=== PATIENT | male | born 1955 | race Hispanic/Latino ===

== ENCOUNTER → 2017-12-23 | Day surgery (SDC) | payer OTHER ==
[2017-12-20 10:15] LABS: BASOPHILS % 0.4 % (0.0-1.0); EOSINOPHILS # (AUTO) 0.1 (0.0-0.4); EOSINOPHILS % 0.7 % (0.0-6.0); HEMATOCRIT 42.6 % (38.2-49.6); HEMOGLOBIN 14.8 g/dL (14.0-18.0); LYMPHOCYTES # (AUTO) 1.8 (1.0-3.2); LYMPHOCYTES % 26.3 % (18.0-39.1); MEAN CORPUSCULAR HEMOGLOBIN 31.8 pg (28-32); MEAN CORPUSCULAR HGB CONC 34.7 g/dL (31-35); MEAN CORPUSCULAR VOLUME 91.6 fL (81-99); MONOCYTES # (AUTO) 0.4 (0.2-0.8); MONOCYTES % 6.4 % (4.4-11.3); NEUTROPHILS # (AUTO) 4.4 (2.1-6.9); NEUTROPHILS % 65.9 % (38.7-80.0); PLATELET COUNT 226 x10e3/uL (140-360); RED BLOOD COUNT 4.65 x10e6/uL (4.3-5.7); RED CELL DISTRIBUTION WIDTH 12.1 % (11.7-14.4)
--- NOTE | 2017-12-20 10:24 | Diagnostic Imaging Report ---
PROCEDURE: Frontal and lateral views of the chest. COMPARISON: None. INDICATIONS: PRE OP LEFT THIGH EXCISION FINDINGS: Lines/tubes: None. Lungs: The lungs are well inflated. There is no evidence of pneumonia or pulmonary edema. Mid linear subsegmental atelectasis at the left lung base. Pleura: There is no pleural effusion or pneumothorax. Heart and mediastinum: The cardiomediastinal silhouette is unremarkable. Bones: No acute bony abnormality. IMPRESSION: No evidence of pneumonia or pulmonary edema. Dictated by: SIL LOPES M.D. on 12/20/2017 at 10:32 Electronically approved by: SIL LOPES M.D. on 12/20/2017 at 10:32
[2017-12-20 10:39] LABS: ANION GAP 13.8 mmol/L (8-16); BLOOD UREA NITROGEN 10 mg/dL (7-26); BUN/CREATININE RATIO 11 (6-25); CALCIUM 9.9 mg/dL (8.4-10.2); CARBON DIOXIDE 29 mmol/L (22-29); CHLORIDE 100 mmol/L (98-107); CREATININE, SERUM 0.95 mg/dL (0.72-1.25); EST GLOMERULAR FILTRATION RATE > 60 ML/MIN (60-); GLUCOSE 169 mg/dL (74-118); POTASSIUM 3.8 mmol/L (3.5-5.1); SODIUM 139 mmol/L (136-145)
[~2017-12-23] MED LIST: ATENOLOL50 MG PO; BACITRACIN ZINC 15 GM OINT ONE; BUPIVACAINE 0.25%/EPI 30ML SDV INJ ONE; DEXAMETHASONE SOD PHOS INJ 4 MG/ML VIAL ONE; FENTANYL CITRATE/PF 100MCG/2 ML INJ ONE; LIDOCAINE HCL 2% LOCAL INJ 5 ML SDV VIAL INJ ONE; LOSARTAN POTAS100 MG PO; METFORMIN HCL500 M2 PO; MIDAZOLAM HCL 2 MG/2 ML VIAL ONE; ONDANSETRON HCL INJ 2 MG/ML VIAL ONE; PRAVASTATIN SOD40 MG PO; PROPOFOL IV EMULSION 10 MG/ML 20 ML VIAL ONE; SEVOFLURANE INHAL SOLN 250 ML PEN BTL ONE; TERAZOSIN HCL5 MG PO
--- OUTSIDE RECORDS SUMMARY | 2017-12-23 05:29 | XMS REPORT ---
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 Allergies, Adverse Reactions, Alerts This patient has no known allergies or adverse reactions. Medications This patient has no known medications. Results Test Description Test Time Test Comments Text Results Atomic Results Result Comments CHEST 2 VIEWS 2017-12-20 10:32:00 [place] [address] Patient Name: MICHELA NOBLE MR #: [id number] : 1955 Age/Sex: 62/M Req #: [id number] Adm Physician: Ordered by: NELY BOJORQUEZ MD Report #: [id number] Location: OR Room/Bed: Procedure: [id number] DX/CHEST 2 VIEWS Exam Date: Exam Time: REPORT STATUS: Signed PROCEDURE: Frontal and lateral views of the chest. COMPARISON: None. INDICATIONS: PRE OP LEFT THIGH EXCISION FINDINGS: Lines/tubes: None. Lungs: The lungs are well inflated. There is no evidence of pneumonia or pulmonary edema. Mid linear subsegmental atelectasis at the left lung base. Pleura: There is no pleural effusion or pneumothorax. Heart and mediastinum: The cardiomediastinal silhouette is unremarkable. Bones: No acute bony abnormality. IMPRESSION: No evidence of pneumonia or pulmonary edema. Dictated by: SIL LOPES M.D. on 12/20/2017 at 10:32 Electronically approved by: SIL LOPES M.D. on 12/20/2017 at 10:32 Dictated By: SIL LOPES MD 1032 Transcribed By: CHRISTAL on 12/20/17 1032 COPY TO: NELY BOJORQUEZ MD US ABDOMEN COMPLETE [place] [address] Patient Name: MICHELA NOBLE MR #: [id number] : 1955 Age/Sex: 62/F Req #: [id number] Adm Physician: Ordered by: RADHA MCCOLLUM MD Report #: [id number] Location: US Room/Bed: Procedure: [id number] US/US ABDOMEN COMPLETE Exam Date: 01/18/17 Exam Time: 1442 REPORT STATUS: Signed PROCEDURE: ABDOMINAL ULTRASOUND COMPARISON: None. INDICATIONS: Abdominal Swelling FINDINGS: Liver: 16 cm, normal in size. Increased hepatic parenchymal echogenicity. No focal mass. Main portal vein: 1 cm, normal in size. Hepatopetal flow. Gallbladder: No stones or sludge. Common Bile Duct: 0.3 cm, no dilatation. No echogenic filling defect. Sonographic Steven's sign: Negative Right kidney: 12.3 cm in length. No solid mass, echogenic calculi, or hydronephrosis. Normal parenchymal echogenicity. Inferior pole 1.1 x 0.8 x 1.3 cm anechoic simple cyst. Left kidney: 12.4 cm in length. No solid or cystic mass, echogenic calculi, or hydronephrosis. Normal parenchymal echogenicity. Spleen: 9.2 cm in length, normal in size. No focal lesions. Pancreas: Visualized portions of the pancreas are unremarkable. Inferior vena cava: Limited visualization. Visualized portions are unremarkable. Aorta: Limited visualization. Visualized portions are unremarkable. Ascites: None. CONCLUSION: 1. Hepatic steatosis. 2. Right renal simple cyst. 3. Otherwise, unremarkable abdominal ultrasound. Dictated by: Alcon Walton M.D. on 01/18/2017 at 15:38 Electronically approved by: Alcon Walton M.D. on 01/18/2017 at 15:38 Dictated By: ALCON WALTON MD 1538 Transcribed By: CHRISTAL on 01/18/17 1538 COPY TO: RADHA MCCOLLUM MD
--- NOTE | 2017-12-23 09:08 | Operative Report ---
DATE OF PROCEDURE: December 23, 2017 PREOPERATIVE DIAGNOSIS: Mass of the left thigh. POSTOPERATIVE DIAGNOSIS: Mass of the left thigh. PROCEDURE PERFORMED: Excision of mass of the left thigh with flap closure. ANESTHESIA: General. ESTIMATED BLOOD LOSS: Minimal. DRAINS: None. COMPLICATIONS: None. INDICATIONS AND FINDINGS: The patient is a 62-year-old male who complained of a mass of the left thigh that has been increasing for the last several months. He is a diabetic. There was no history of trauma. INTRAOPERATIVE FINDINGS: A 3.5 x 3 cm mass of the left thigh with a purplish color, somewhat nodular and firm, with extension into the superficial subcutaneous tissue. The mass was excised with gross clear margins. DESCRIPTION OF PROCEDURE: With the patient lying on the operative table in the supine position, after administration of general anesthesia, he was prepped and draped for excision of the mass of the left thigh. An elliptical incision was made around the mass, and then the dissection was carried down through the skin and subcutaneous tissue until the mass was excised with clear margins completely. Bleeding points were cauterized. The wound was closed in 2 layers using 2-0 Vicryl for the soft tissues, and the skin was closed using 3-0 silk. Marcaine 0.25% with epinephrine was given as a local block at the end of the case. The patient tolerated the procedure well and was taken to the recovery room in stable condition. Job#: [id number]
[2017-12-23 09:45] VITALS: BP 126/84
== END | disposition home or self-care (01) ==
LOC: OR 05:26 → EDSEX 07:30
PROVIDERS: ATTEND Surgery
DX: L72.0 Epidermal cyst (principal); E11.9 Type 2 diabetes mellitus without complications; I10 Essential (primary) hypertension; Z01.810 Encounter for preprocedural cardiovascular examination; Z01.812 Encounter for preprocedural laboratory examination; Z01.818 Encounter for other preprocedural examination; Z79.84 Long term (current) use of oral hypoglycemic drugs; Z68.30 Body mass index [BMI] 30.0-30.9, adult
CPT/HCPCS: 11404; 12032; 36415 ×2; 71046; 80048; 82948; 85025; 88304; 93005; J1100; J2001; J2250; J2405

== ENCOUNTER → 2020-10-30 | Outpatient (CLI) | payer MEDICARE ==
[~2020-10-30] MED LIST changes: -BACITRACIN ZINC 15 GM OINT ONE; -BUPIVACAINE 0.25%/EPI 30ML SDV INJ ONE; -DEXAMETHASONE SOD PHOS INJ 4 MG/ML VIAL ONE; -FENTANYL CITRATE/PF 100MCG/2 ML INJ ONE; -LIDOCAINE HCL 2% LOCAL INJ 5 ML SDV VIAL INJ ONE; -MIDAZOLAM HCL 2 MG/2 ML VIAL ONE; -ONDANSETRON HCL INJ 2 MG/ML VIAL ONE; -PROPOFOL IV EMULSION 10 MG/ML 20 ML VIAL ONE; +REGADENOSON 0.4 MG/5 ML SYR IV ONE; -SEVOFLURANE INHAL SOLN 250 ML PEN BTL ONE
== END ==
LOC: NM 10:52
PROVIDERS: ATTEND Internal Medicine Cardiovascular Disease
DX: R07.9 Chest pain, unspecified (principal)
CPT/HCPCS: 78452; 93017; 93306; A9502; J2785